=== PATIENT | female | born 1975 | race Caucasian/White ===

== ENCOUNTER 2017-09-19 15:00 | Emergency (ER) | payer MEDICAID ==
[~2017-09-19] VITALS: Ht 134.6 cm; Wt 78.0 kg
[2017-09-19 15:25] VITALS: Ht 134.6 cm; Wt 78.0 kg
[2017-09-19 17:46] LABS: microscopic required? YES; urine erythrocyte 3+ (NEGATIVE)
[2017-09-19 19:03] LABS: BASOPHIL % 0.2 % (0-2); PLATELET COUNT 263 x10^3mcL (130-400)
[2017-09-19 19:29] VITALS: BP 128/78
== END 2017-09-19 19:29 | disposition home or self-care (01) ==
LOC: ED 15:00
PROVIDERS: Specialist
DX: N93.9 Abnormal uterine and vaginal bleeding, unspecified (principal); D25.9 Leiomyoma of uterus, unspecified; I10 Essential (primary) hypertension
CPT/HCPCS: 36415; J1885; J3010; Q0162